=== PATIENT | female | born 1950 | race Caucasian/White ===

== ENCOUNTER → 2017-03-17 | Outpatient (CLI) | payer OTHER, MEDICAID | LOC: SBRMNEURO 20:00 | PROVIDERS: ATTEND Psychiatry & Neurology Sleep Medicine | DX: G47.33 Obstructive sleep apnea (adult) (pediatric) (principal); G47.34 Idiopathic sleep related nonobstructive alveolar hypoventilation ==

== ENCOUNTER 2017-07-15 15:00 | Emergency (ER) | payer OTHER, MEDICAID ==
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
[2017-07-15 15:13] VITALS: BP 165/86; PULSE 66; RESP 16; TEMP 98.1; O2SAT 95
== END 2017-07-15 15:32 | disposition home or self-care (01) ==
LOC: EDUNIT#
DX: Z04.71 Encounter for examination and observation following alleged adult physical abuse (principal); J44.9 Chronic obstructive pulmonary disease, unspecified; Z87.891 Personal history of nicotine dependence

== ENCOUNTER 2017-07-17 09:13 | Emergency (ER) | payer OTHER, MEDICAID ==
[2017-07-17 09:30] VITALS: BP 131/80; PULSE 69; RESP 16; TEMP 97.5; O2SAT 93
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
[2017-07-17 10:02] LABS: % IMMATURE GRANULYOCYTES 0.5 % (0.0-1.1); ABSOLUTE IMMATURE GRANULOCYTES 0.04 10^3/uL (0.00-0.10); ADD DIFF? NO; ADD MORPH? NO; ADD SCAN? NO; ATYPICAL LYMPHOCYTE FLAG 0 (0-99); FRAGMENT RBC FLAG 0 (0-99); HEMATOCRIT 38.7 % (38.0-47.0); HEMOGLOBIN 12.8 g/dL (12.6-16.3); LEFT SHIFT FLG 0 (0-99); LIPEMIA HEMOLYSIS FLAG 80 (0-99); MEAN CELL HEMOGLOBIN 30.1 pg (27.9-34.1); MEAN CELL HEMOGLOBIN CONCENTR. 33.1 g/dL (32.4-36.7); MEAN CELL VOLUME 91.1 fL (81.5-99.8); MEAN PLATELET VOLUME 9.5 fL (8.7-11.7); PLATELET CLUMPS FLAG 0 (0-99); PLATELET COUNT 213 10^3/uL (150-400); RED BLOOD CELL COUNT 4.25 10^6/uL (4.18-5.33); RED CELL DISTRIBUTION WIDTH 14.3 % (11.5-15.2)
[2017-07-17 10:19] LABS: ANION GAP 10 mEq/L (8-16); CARBON DIOXIDE 22 mEq/l (22-31); CHLORIDE 105 mEq/L (97-110); CREATININE 0.8 mg/dL (0.6-1.0); ETHANOL SERUM < 10 mg/dL (0-10); GLOMERULAR FILTRATION RATE > 60; GLUCOSE 101 mg/dL (70-100); POTASSIUM 4.6 mEq/L (3.5-5.2); SALICYLATE < 1.0 mg/dL (2.0-20.0); SODIUM 137 mEq/L (134-144)
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
== END 2017-07-17 12:05 | disposition home or self-care (01) ==
LOC: EDUNIT#
DX: F31.9 Bipolar disorder, unspecified (principal); F19.10 Other psychoactive substance abuse, uncomplicated; J44.9 Chronic obstructive pulmonary disease, unspecified; Z87.891 Personal history of nicotine dependence; Z91.14 Patient's other noncompliance with medication regimen
CPT/HCPCS: 80305; G0480

== ENCOUNTER 2017-07-18 01:58 | Emergency (ER) | payer OTHER, MEDICAID ==
[2017-07-18 02:12] VITALS: BP 145/74; PULSE 66; RESP 16; TEMP 97.9; O2SAT 96
--- NOTE | 2017-07-18 02:12 | EDPHY ---
H & P HPI/ROS: HPI CHIEF COMPLAINT: M1 hold, brought in by police. HISTORY OF PRESENT ILLNESS: This patient very pleasant 67-year-old female she presents emergency room by police on M1 hold. She was trying to get to a fdc this evening. She is from [place]. She has been in [place] for 3 days staying with friends. She is trying to get to a fdc this evening but was unable to do so. Police were contacted and she had no where to go. She was unable to get back to [place]. She was unable to get to the fdc this evening so they brought her to the emergency room for fdc. She denies wanting to hurt herself or anybody else. Denies being suicidal. They placed her on M1 for being gravely disabled however she is not gravely disabled. She would like to go to a fdc tonight. She does not want to be in the emergency room. She is calm and cooperative. Given that she does not meet M1 hold criteria have lifted this. She will be discharged from the emergency room will try to get her to his fdc this evening. Past Medical History: Bipolar disorder, COPD Past Surgical History: Cervical fusion Social History: Smokes tobacco, denies illicit drugs alcohol. Family History: Noncontributory ROS REVIEW OF SYSTEMS: A comprehensive 10 point review of systems is otherwise negative aside from elements mentioned in the history of present illness. Exam Constitutional triage nursing summary reviewed, vital signs reviewed, awake/ alert. Eyes normal conjunctivae and sclera, EOMI, PERRLA. HENT normal inspection, atraumatic, moist mucus membranes, no epistaxis, neck supple/ no meningismus, no raccoon eyes. Respiratory clear to auscultation bilaterally, normal breath sounds, no respiratory distress, no wheezing. Cardiovascular rate normal, regular rhythm, no murmur, no edema, distal pulses normal. Gastrointestinal soft, non-tender, no rebound, no guarding, normal bowel sounds, no distension, no pulsatile mass. Genitourinary no CVA tenderness. Musculoskeletal no midline vertebral tenderness, full range of motion, no calf swelling, no tenderness of extremities, no meningismus, good pulses, neurovascularly intact. Skin pink, warm, & dry, no rash, skin atraumatic. Neurologic awake, alert and oriented x 3, AAOx3, moves all 4 extremities equally, motor intact, sensory intact, CN II-XII intact, normal cerebellar, normal vision, normal speech. Psychiatric normal mood/affect. Not suicidal not homicidal. Not depressed. No complaints. Heme/Lymph/Immune no lymphadenopathy. Differential Diagnosis: Includes but is not limited to in a particular order, cold exposure, by mental exposure, homelessness, poor social situation, bipolar disorder Medical Decision Making: Plan for this patient she is not suicidal or homicidal she is not gravely disabled. She is calm and cooperative. Organized thoughts. Not acutely psychotic. She will be discharged from the emergency room to fdc. Understands return emergency room she develops worsening symptoms questions or concerns. Source: Patient, Police - Medical/Surgical History Hx Asthma: No Hx Chronic Respiratory Disease: Yes Hx Diabetes: No Hx Cardiac Disease: No Hx Renal Disease: No Hx Cirrhosis: No Hx Alcoholism: No Hx HIV/AIDS: No Hx Splenectomy or Spleen Trauma: No Other PMH: THYROIDECTOMY, NECK SURGERY,Bipolar, HepC; copd, early dementia - Social History Smoking Status: Former smoker Constitutional: Initial Vital Signs Temperature (C) 36.6 C 07/18/17 02:05 Heart Rate 66 07/18/17 02:05 Respiratory Rate 16 07/18/17 02:05 Blood Pressure 145/74 H 07/18/17 02:05 O2 Sat (%) 96 07/18/17 02:05 O2 Delivery Mode Room Air Allergies/Adverse Reactions: No Known Allergies Allergy (Verified 07/18/17 02:04) Home Medications: Medication Instructions Recorded Albuterol [Proventil Inhaler HFA 2 puffs IH Q4 PRN 12/17/13 (*)] Calcium Carbonate/Vitamin D3 1 tab PO BID 12/17/13 [Calcium 500 + Vit D Caplet] Divalproex ER [Depakote ER 500 MG 2 tab PO HS 12/17/13 (*)] Multivitamins [Multivitamin (*)] 1 tab PO DAILY 12/17/13 QUEtiapine FUMARATE [Seroquel 2 tab PO HS 12/17/13 300mg (*)] Tiotropium Inhaler [Spiriva 1 inh IH DAILY 12/17/13 Inhaler (RX)] rOPINIRole HCL [Requip 5mg (*)] 1 tab PO HS 12/17/13 BUSPIRONE HCL 10 mg PO TID 10/28/15 Herbals/Supplements -Info Only 1 ea PO DAILY 10/28/15 Levothyroxine [Synthroid 200 mcg 200 mcg PO DAILY06 10/28/15 (*)] [place] Carbonate 300 mg PO DAILY 10/28/15 OXYCODONE HCL/ACETAMINOPHEN 1 tab PO Q6H PRN 10/28/15 [OXYCODONE-APAP 7.5-325 MG TAB] [place]-3 Fatty Acids/Fish Oil [Fish 3 each PO DAILY 10/28/15 Oil 1,000 mg Capsule] Quetiapine Fumarate 50 mg PO 10/28/15 Cefuroxime Axetil [Ceftin (*)] 250 mg PO BID #9 tab 10/30/15 Ibuprofen [Motrin (*)] 400 mg PO Q6 PRN #0 tab 10/30/15 Departure - Departure Disposition: Home, Routine, Self-Care Clinical Impression: Cold exposure Qualifiers: Encounter type: initial encounter Qualified Code(s): T69.9XXA - Effect of reduced temperature, unspecified, initial encounter Bipolar disorder Qualifiers: Active/Remission status: in remission of unspecified degree Qualified Code(s): F31.70 - Bipolar disorder, currently in remission, most recent episode unspecified Condition: Good Instructions: Bipolar Disorder (ED) Referrals: NONE *PRIMARY CARE P,. [Primary Care Provider] - As per Instructions
== END 2017-07-18 02:32 | disposition home or self-care (01) ==
DX: F31.70 Bipolar disorder, currently in remission, most recent episode unspecified (principal); T69.9XXA Effect of reduced temperature, unspecified, initial encounter; J44.9 Chronic obstructive pulmonary disease, unspecified; Z87.891 Personal history of nicotine dependence; X31.XXXA Exposure to excessive natural cold, initial encounter

== ENCOUNTER 2017-07-28 08:50 | Inpatient (IN) | payer OTHER, MEDICAID ==
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
[2017-07-28 09:55] LABS: ADD DIFF? YES; ADD MORPH? NO; ADD SCAN? NO; ATYPICAL LYMPHOCYTE FLAG 0 (0-99); FRAGMENT RBC FLAG 0 (0-99); HEMATOCRIT 38.9 % (38.0-47.0); HEMOGLOBIN 12.9 g/dL (12.6-16.3); LEFT SHIFT FLG 20 (0-99); LIPEMIA HEMOLYSIS FLAG 80 (0-99); MEAN CELL HEMOGLOBIN 30.4 pg (27.9-34.1); MEAN CELL HEMOGLOBIN CONCENTR. 33.2 g/dL (32.4-36.7); MEAN CELL VOLUME 91.5 fL (81.5-99.8); MEAN PLATELET VOLUME 8.9 fL (8.7-11.7); PLATELET CLUMPS FLAG 0 (0-99); PLATELET COUNT 298 10^3/uL (150-400); RED BLOOD CELL COUNT 4.25 10^6/uL (4.18-5.33)
[2017-07-28] MEDS ORDERED: NS 500 ML IV ONE (10:16)
[2017-07-28 10:18] LABS: ANION GAP 12 mEq/L (8-16); CALCIUM 8.7 mg/dL (8.5-10.4); CARBON DIOXIDE 23 mEq/l (22-31); CHLORIDE 107 mEq/L (97-110); CREATININE 0.6 mg/dL (0.6-1.0); GLOMERULAR FILTRATION RATE > 60; GLUCOSE 128 mg/dL (70-100); POTASSIUM 3.1 mEq/L (3.5-5.2); SODIUM 142 mEq/L (134-144)
[2017-07-28 10:33] LABS: PLATELET ESTIMATE ADEQUATE (ADEQ)
[2017-07-28 10:36] LABS: HYPOCHROMIA 1+; POLYCHROMASIA 1+
[2017-07-28] MEDS ORDERED: KETOROLAC 15 MG/1 ML SDV IVP ONE (10:50)
[2017-07-28] MEDS ORDERED: ONDANSETRON 4 MG/2 ML VIAL IVP ONE (10:50)
[2017-07-28] MEDS ORDERED: ONDANSETRON 4 MG/2 ML VIAL ONE (10:52)
[2017-07-28 11:59] LABS: COLOR YELLOW; LEUKOCYTE ESTERASE,URINE NEGATIVE (NEGATIVE); NITRITE,URINE POSITIVE (NEGATIVE)
[2017-07-28 12:04] LABS: BACTERIA TRACE /hpf (NONE SEEN); MUCUS TRACE /lpf (NONE-1+)
[2017-07-28] MEDS ORDERED: ACETAMINOPHEN 325 MG TAB PO ONE (14:03)
[2017-07-28] MEDS ORDERED: ONDANSETRON 4 MG/2 ML VIAL IVP PRN (14:28)
[2017-07-28] MEDS ORDERED: ONDANSETRON DISINTEGRATING 4 MG TAB PO PRN (14:28)
[2017-07-28] MEDS ORDERED: IBUPROFEN 200 MG TAB PO PRN (14:28)
[2017-07-28] MEDS ORDERED: PROTOCOL POTASSIUM 1 DOSE MISC PRN (14:31)
[2017-07-28] MEDS ORDERED: PROTOCOL MAGNESIUM 1 DOSE IV PRN (14:31)
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
[2017-07-28] MEDS ORDERED: CEFTRIAXONE 1 GM/DEXTROSE/50 ML BAG IV ONE (16:25)
[2017-07-28] MEDS ORDERED: OXYCODONE/APAP 5/325 TAB PO PRN (16:47)
[2017-07-28] MEDS: NS W/ 20 KCl/L 1,000 ML IV SCH (16:59)
[2017-07-28] MEDS: ACETAMINOPHEN 325 MG TAB PO PRN ×2 (17:01→21:11)
[2017-07-28] MEDS: oxyCODONE IR 5 MG TAB PO PRN ×2 (17:01→21:11)
[2017-07-28] MEDS: busPIRone 10 MG TAB PO SCH ×2 (17:02→21:06)
[2017-07-28] MEDS: IPRATROPIUM/ALBUTEROL 3 ML DEYVIAL IH SCH ×2 (17:04→21:46)
[2017-07-28] MEDS: PANTOPRAZOLE SODIUM 40 MG in NS 100 ML IV SCH ×2 (17:09→21:07)
[2017-07-28] MEDS ORDERED: POTASSIUM CL 10 MEQ TAB PO ONE (17:46)
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
[2017-07-28 20:42] LABS: POTASSIUM 4.2 mEq/L (3.5-5.2)
[2017-07-28] MEDS ORDERED: LITHIUM CARBONATE ER 300 MG TAB PO SCH (21:00)
[2017-07-28] MEDS: DIVALPROEX ER 500 MG TAB PO SCH (21:06)
[2017-07-29] MEDS: ACETAMINOPHEN 325 MG TAB PO PRN (02:15)
[2017-07-29] MEDS: oxyCODONE IR 5 MG TAB PO PRN ×4 (02:16→18:34)
[2017-07-29] MEDS: DIAZEPAM 5 MG TAB PO PRN ×3 (02:16→15:33)
[2017-07-29 05:51] LABS: ADD DIFF? YES; ADD MORPH? NO; ADD SCAN? NO; ATYPICAL LYMPHOCYTE FLAG 0 (0-99); FRAGMENT RBC FLAG 20 (0-99); HEMATOCRIT 33.1 % (38.0-47.0); HEMOGLOBIN 10.9 g/dL (12.6-16.3); LEFT SHIFT FLG 10 (0-99); LIPEMIA HEMOLYSIS FLAG 80 (0-99); MEAN CELL HEMOGLOBIN 30.7 pg (27.9-34.1); MEAN CELL HEMOGLOBIN CONCENTR. 32.9 g/dL (32.4-36.7); MEAN CELL VOLUME 93.2 fL (81.5-99.8); MEAN PLATELET VOLUME 9.3 fL (8.7-11.7); PLATELET CLUMPS FLAG 10 (0-99); PLATELET COUNT 320 10^3/uL (150-400); RED BLOOD CELL COUNT 3.55 10^6/uL (4.18-5.33)
[2017-07-29] MEDS: IPRATROPIUM/ALBUTEROL 3 ML DEYVIAL IH SCH ×4 (05:52→21:43)
[2017-07-29 06:05] LABS: ANION GAP 5 mEq/L (8-16); CALCIUM 7.8 mg/dL (8.5-10.4); CARBON DIOXIDE 22 mEq/l (22-31); CHLORIDE 110 mEq/L (97-110); CREATININE 0.5 mg/dL (0.6-1.0); GLOMERULAR FILTRATION RATE > 60; GLUCOSE 92 mg/dL (70-100); MAGNESIUM 1.8 mg/dL (1.6-2.3); POTASSIUM 4.3 mEq/L (3.5-5.2); SODIUM 137 mEq/L (134-144)
[2017-07-29 06:23] LABS: HYPERSEGMENTED NEUTROPHILS 1+
[2017-07-29 06:30] LABS: PLATELET ESTIMATE ADEQUATE (ADEQ); POLYCHROMASIA 1+
[2017-07-29] MEDS: LEVOTHYROXINE 200 MCG TAB PO SCH (07:55)
[2017-07-29] MEDS: NS W/ 20 KCl/L 1,000 ML IV SCH (07:57)
[2017-07-29] MEDS: busPIRone 10 MG TAB PO SCH ×3 (07:58→21:37)
[2017-07-29] MEDS: OMEGA-3 FATTY ACIDS 1,000 MG CAP PO SCH (07:58)
[2017-07-29] MEDS: MULTIVITAMINS 1 EACH TAB PO SCH (07:58)
[2017-07-29] MEDS: PANTOPRAZOLE SODIUM 40 MG in NS 100 ML IV SCH (08:00)
[2017-07-29] MEDS ORDERED: Herbals/Supplements -Info Only PO SCH (09:00)
[2017-07-29] MEDS ORDERED: POLYETHYLENE GLYCOL 3350 17 GM PKT PO PRN (09:31)
[2017-07-29] MEDS ORDERED: MAGNESIUM HYDROXIDE 30 ML UDCUP PO PRN (09:31)
[2017-07-29] MEDS ORDERED: LACTULOSE 20 GM/30 ML UDCUP PO PRN (09:31)
[2017-07-29] MEDS ORDERED: BISACODYL 10 MG SUPP PR PRN (09:31)
--- NOTE | 2017-07-29 09:42 | HOSPPROG ---
Hospitalist Progress Note Assessment/Plan: # acute viral respiratory infection - mucinex, nebs, IS, flutter valve # COPD - on RA; no steroids given hx bipolar # leukocytosis - marked; suspect stress reaction - recheck tomorrow # possible UTI - no UCX sent - empiric rocephin, will plan short course # bipolar - not manic - cont lithium and depakote # N/V - resolved; change PPI to PO # HCV - treatment status unknown # hypothyroid - synthroid Subjective: feels stronger today, not back to normal Objective: Vital Signs Temp Pulse Resp BP Pulse Ox 36.6 C 52 L 20 122/56 H 94 07/29/17 08:00 07/29/17 08:00 07/29/17 08:00 07/29/17 08:00 07/29/17 08:00 Laboratory Results 07/29/17 05:18 07/29/17 05:18 07/28/17 07/29/17 07/30/17 05:59 05:59 05:59 Intake Total 1774 Balance 1774 chart reviewed CXR personally reviewed - Physical Exam Constitutional: no apparent distress, appears nourished Cardiovascular: regular rate and rhythym, no murmur, rub, or gallop Respiratory: no respiratory distress, expiratory wheeze, rhonchi, No reduced air movement, No dullness to percussion Gastrointestinal: normoactive bowel sounds, soft, non-tender abdomen, no palpable masses ICD10 Worksheet Patient Problems: Problems Problem Status Onset Pneumonia Acute Arthrodesis status Acute Fracture of pubic ramus Acute Fall from slipping on ice Acute Leukocytosis Acute Rhinovirus Acute
--- NOTE | 2017-07-29 11:04 | PDMN ---
Medical Necessity Medical necessity: change to IP; los >2 mn for acute viral URI, possible UTI, & marked leukocytosis; requires nebs, IV abx, trial oral PPI; comorbid COPD, bipolar & homelessness; per progress note & order 07/29/17
[2017-07-29] MEDS ORDERED: MAGNESIUM SULF 1 GM/DEXTROSE 100 ML IV ONE (11:47)
[2017-07-29] MEDS: TIOTROPIUM INHALER 18 MCG/DOSE 5 DOSE/MDI IH SCH (11:54)
[2017-07-29] MEDS: guaiFENesin 600 MG TAB.ER PO SCH ×2 (12:06→21:36)
[2017-07-29] MEDS: VANCOMYCIN HCL/NORMAL SALINE 250 ML IV SCH (15:25)
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
[2017-07-29 18:23] LABS: POTASSIUM 4.6 mEq/L (3.5-5.2)
[2017-07-29] MEDS: DIVALPROEX ER 500 MG TAB PO SCH (21:36)
[2017-07-29] MEDS: SENNOSIDES/DOCUSATE SODIUM TAB PO SCH (21:37)
[2017-07-29] MEDS: LITHIUM CARBONATE ER 300 MG TAB PO SCH (21:37)
[2017-07-30] MEDS: DIAZEPAM 5 MG TAB PO PRN ×2 (02:41→09:51)
[2017-07-30] MEDS: VANCOMYCIN HCL/NORMAL SALINE 250 ML IV SCH (04:03)
[2017-07-30] MEDS: LEVOTHYROXINE 200 MCG TAB PO SCH (04:53)
[2017-07-30] MEDS: oxyCODONE IR 5 MG TAB PO PRN ×3 (04:53→21:23)
[2017-07-30] MEDS: IPRATROPIUM/ALBUTEROL 3 ML DEYVIAL IH SCH ×4 (05:37→21:58)
[2017-07-30 05:41] LABS: % IMMATURE GRANULYOCYTES 1.1 % (0.0-1.1); ABSOLUTE IMMATURE GRANULOCYTES 0.14 10^3/uL (0.00-0.10); ADD DIFF? NO; ADD MORPH? NO; ADD SCAN? NO; ATYPICAL LYMPHOCYTE FLAG 0 (0-99); FRAGMENT RBC FLAG 0 (0-99); HEMATOCRIT 32.8 % (38.0-47.0); HEMOGLOBIN 10.7 g/dL (12.6-16.3); LEFT SHIFT FLG 0 (0-99); LIPEMIA HEMOLYSIS FLAG 80 (0-99); MEAN CELL HEMOGLOBIN 30.1 pg (27.9-34.1); MEAN CELL HEMOGLOBIN CONCENTR. 32.6 g/dL (32.4-36.7); MEAN CELL VOLUME 92.4 fL (81.5-99.8); MEAN PLATELET VOLUME 9.1 fL (8.7-11.7); PLATELET CLUMPS FLAG 10 (0-99); PLATELET COUNT 261 10^3/uL (150-400); RED BLOOD CELL COUNT 3.55 10^6/uL (4.18-5.33); RED CELL DISTRIBUTION WIDTH 15.1 % (11.5-15.2)
[2017-07-30 05:50] LABS: CALCIUM 7.9 mg/dL (8.5-10.4); CARBON DIOXIDE 23 mEq/l (22-31); CHLORIDE 107 mEq/L (97-110); CREATININE 0.5 mg/dL (0.6-1.0); GLOMERULAR FILTRATION RATE > 60; GLUCOSE 88 mg/dL (70-100); POTASSIUM 4.3 mEq/L (3.5-5.2)
[2017-07-30] MEDS: SENNOSIDES/DOCUSATE SODIUM TAB PO SCH ×2 (09:33→21:21)
[2017-07-30] MEDS: guaiFENesin 600 MG TAB.ER PO SCH ×2 (09:33→21:20)
[2017-07-30] MEDS: PANTOPRAZOLE SODIUM 40 MG TAB PO SCH (09:33)
[2017-07-30] MEDS: busPIRone 10 MG TAB PO SCH ×3 (09:33→21:19)
[2017-07-30] MEDS: OMEGA-3 FATTY ACIDS 1,000 MG CAP PO SCH (09:33)
[2017-07-30] MEDS: MULTIVITAMINS 1 EACH TAB PO SCH (09:34)
[2017-07-30] MEDS: TIOTROPIUM INHALER 18 MCG/DOSE 5 DOSE/MDI IH SCH (12:55)
--- NOTE | 2017-07-30 13:34 | HOSPPROG ---
Hospitalist Progress Note Assessment/Plan: # acute rhinovirus/enterovirus respiratory infection - mucinex, nebs, IS, flutter valve # COPD - on RA; no steroids given hx bipolar # +BCx, CLAIM REPRESENTATIVE - suspect contaminant; received a few doses of vanc - monitor overnight, will not target directly now unless repeat cultures positive # leukocytosis - marked; suspect stress reaction - recheck tomorrow # possible UTI - no UCX sent - empiric rocephin, plan short course # bipolar - not manic - cont lithium and depakote # N/V - resolved; change PPI to PO # HCV - treatment status unknown # hypothyroid - synthroid # dispo - tomorrow if no additional BCx positive Subjective: feels weak, but overall doing well; still coughing Objective: Vital Signs Temp Pulse Resp BP Pulse Ox 36.7 C 73 18 166/70 H 93 07/30/17 12:00 07/30/17 12:55 07/30/17 12:55 07/30/17 12:00 07/30/17 12:55 Laboratory Results 07/30/17 05:27 07/30/17 05:27 07/29/17 07/30/17 07/31/17 05:59 05:59 05:59 Intake Total 1600 Balance 1600 - Physical Exam Constitutional: chronically ill appearing Cardiovascular: regular rate and rhythym, no murmur, rub, or gallop Respiratory: no respiratory distress, expiratory wheeze (mild), rhonchi (mild), No reduced air movement Gastrointestinal: normoactive bowel sounds, soft, non-tender abdomen, no palpable masses ICD10 Worksheet Patient Problems: Problems Problem Status Onset Pneumonia Acute Arthrodesis status Acute Fracture of pubic ramus Acute Fall from slipping on ice Acute Leukocytosis Acute Rhinovirus Acute
--- NOTE | 2017-07-30 15:27 | ASMTCMCOM ---
CM Note CM Note Notes: Today Massimor asked CM assistant shift supervisor to collect clothing for Pt. She did so and SWer gave Pt. clothing, shoes, and a winter coat. Will try on clothes w/ help of visiting friend. Pt. states she has been keeping in touch with the [facility] to keep her already reserved bed. MD wants to keep Pt. at least one more night. Likely d/c tomorrow. Pt. to d/c in a cab to the [facility] to her already reserved bed. If [facility] cannot keep Pt. in her room until 16:30, Pt. states she is OK waiting in the [facility] lobby until 16:30 so that she does not have to wait outside at the [facility]. SWer did not hear back from [facility]PS nor did [facility] call back with any respite bed options. CM to follow for d/c. Date Signed: 07/30/2017 03:26 PM Electronically Signed By:Marjorie Davison LCSW
[2017-07-30 19:11] LABS: ANION GAP 12 mEq/L (8-16); SODIUM 142 mEq/L (134-144)
[2017-07-30] MEDS: DIVALPROEX ER 500 MG TAB PO SCH (21:19)
[2017-07-30] MEDS: LITHIUM CARBONATE ER 300 MG TAB PO SCH (21:20)
[2017-07-31] MEDS: oxyCODONE IR 5 MG TAB PO PRN ×3 (02:17→15:39)
[2017-07-31] MEDS: DIAZEPAM 5 MG TAB PO PRN ×3 (03:15→15:39)
[2017-07-31 06:02] LABS: % IMMATURE GRANULYOCYTES 1.8 % (0.0-1.1); ABSOLUTE IMMATURE GRANULOCYTES 0.16 10^3/uL (0.00-0.10); ADD DIFF? NO; ADD MORPH? NO; ADD SCAN? NO; ATYPICAL LYMPHOCYTE FLAG 50 (0-99); FRAGMENT RBC FLAG 0 (0-99); HEMATOCRIT 38.1 % (38.0-47.0); HEMOGLOBIN 12.3 g/dL (12.6-16.3); LEFT SHIFT FLG 10 (0-99); LIPEMIA HEMOLYSIS FLAG 80 (0-99); MEAN CELL HEMOGLOBIN 29.4 pg (27.9-34.1); MEAN CELL HEMOGLOBIN CONCENTR. 32.3 g/dL (32.4-36.7); MEAN CELL VOLUME 90.9 fL (81.5-99.8); MEAN PLATELET VOLUME 9.3 fL (8.7-11.7); PLATELET CLUMPS FLAG 0 (0-99); PLATELET COUNT 347 10^3/uL (150-400); RED BLOOD CELL COUNT 4.19 10^6/uL (4.18-5.33); RED CELL DISTRIBUTION WIDTH 14.8 % (11.5-15.2)
[2017-07-31] MEDS: IPRATROPIUM/ALBUTEROL 3 ML DEYVIAL IH SCH ×2 (06:07→11:08)
[2017-07-31 06:14] LABS: ANION GAP 12 mEq/L (8-16); CALCIUM 9.2 mg/dL (8.5-10.4); CARBON DIOXIDE 28 mEq/l (22-31); CHLORIDE 102 mEq/L (97-110); CREATININE 0.6 mg/dL (0.6-1.0); GLOMERULAR FILTRATION RATE > 60; GLUCOSE 92 mg/dL (70-100); MAGNESIUM 1.9 mg/dL (1.6-2.3); POTASSIUM 4.5 mEq/L (3.5-5.2); SODIUM 142 mEq/L (134-144)
[2017-07-31] MEDS: LEVOTHYROXINE 200 MCG TAB PO SCH (06:35)
[2017-07-31] MEDS: PANTOPRAZOLE SODIUM 40 MG TAB PO SCH (08:16)
[2017-07-31] MEDS: busPIRone 10 MG TAB PO SCH ×2 (08:16→15:39)
[2017-07-31] MEDS: guaiFENesin 600 MG TAB.ER PO SCH (08:16)
[2017-07-31] MEDS: OMEGA-3 FATTY ACIDS 1,000 MG CAP PO SCH (08:16)
[2017-07-31] MEDS: MULTIVITAMINS 1 EACH TAB PO SCH (08:16)
[2017-07-31] MEDS: SENNOSIDES/DOCUSATE SODIUM TAB PO SCH (08:16)
[2017-07-31 08:54] VITALS: BP 110/91; PULSE 88; TEMP 98.8
[2017-07-31] MEDS: TIOTROPIUM INHALER 18 MCG/DOSE 5 DOSE/MDI IH SCH (11:08)
[2017-07-31 11:16] VITALS: RESP 18; O2SAT 90
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
--- NOTE | 2017-07-31 15:54 | ASMTCMCOM ---
CM Note CM Note Notes: Reviewed chart; spoke w/ CHANA Michaud re: d/c poc, pt's progress. Per MD notes, pt to discharge to [facility]. Met w/ pt to discuss plan. Pt called [facility] to reserve a bed for tonight. Cab voucher provided per prior CM notes; [facility] voucher number [phone]. Assisted pt to call to reserve cab for 1630. IM signed. Spent 30+ min w/ pt calling cab, explaining IM and discussing homelessness. CM business card provided at pt request. Pt to f/u as directed. CM avail for any further issues or concerns. Date Signed: 07/31/2017 03:53 PM Electronically Signed By:Laila Kelsey RN
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
== END 2017-07-31 16:34 | disposition home or self-care (01) | DRG 690 ==
LOC: EDUNIT# → EEVIPCON 14:24 → INTOOBSV 14:24 → F3E 16:42 → OBSVTOIN 07-29 09:42
PROVIDERS: ADMIT Family Medicine; ATTEND Family Medicine
DX: N39.0 Urinary tract infection, site not specified (principal); J00 Acute nasopharyngitis [common cold]; K52.9 Noninfective gastroenteritis and colitis, unspecified; B97.89 Other viral agents as the cause of diseases classified elsewhere; J44.9 Chronic obstructive pulmonary disease, unspecified; F31.9 Bipolar disorder, unspecified; E03.9 Hypothyroidism, unspecified; B19.20 Unspecified viral hepatitis C without hepatic coma; Z87.891 Personal history of nicotine dependence; Z59.0 Homelessness
CPT/HCPCS: 92523-GN; 92526-GN; 92610-GN; 96374; 97116-GP; 97162-GP; G0378; G8978-GP-CK; G8979-GP-CI; G8996-GN-CI; G8997-GN-CI; G8998-GN-CI; J0696; J1885; J2405; J3370; J3475

== ENCOUNTER 2017-08-21 08:33 | Emergency (ER) | payer OTHER, MEDICAID ==
[~2017-08-21 08:33] MED LIST: CEPHALEXIN 500 MG CAP PO SCH; SULFAMETHOX/TMP 800/160 MG 1 TAB PO SCH
[2017-08-21 08:41] VITALS: BP 137/63; PULSE 78; RESP 16; TEMP 98.6; O2SAT 94
--- NOTE | 2017-08-21 08:55 | EDPHY ---
H & P Stated Complaint: L ARM SWELLING Time Seen by Provider: 08/21/17 08:47 HPI/ROS: CHIEF COMPLAINT: Left arm erythema HISTORY OF PRESENT ILLNESS: Patient is a 67-year-old homeless female who comes to the emergency department complaining of swelling pain and erythema to her left arm just distal to the elbow. It is tender to palpation. She has not had a fever. She does have mild body aches. She states that this is similar to previous episodes of cellulitis. No trauma. No joint swelling or pain with flexion or rotation of her elbow. REVIEW OF SYSTEMS: Constitutional: denies: chills, fever, recent illness, recent injury EENTM: denies: blurred vision, double vision, nose congestion Respiratory: denies: cough, shortness of breath Cardiac: denies: chest pain, irregular heart rate, lightheadedness, palpitations Gastrointestinal/Abdominal: denies: abdominal pain, diarrhea, nausea, vomiting, blood streaked stools Genitourinary: denies: dysuria, frequency, hematuria, pain Musculoskeletal: denies: joint pain, muscle pain Skin: See HPI Neurological: denies: headache, numbness, paresthesia, tingling, dizziness, weakness Hematologic/Lymphatic: denies: blood clots, easy bleeding, easy bruising Immunologic/allergic: denies: HIV/AIDS, transplant EXAM: GENERAL: Well-appearing, well-nourished and in no acute distress. HEAD: Atraumatic, normocephalic. EYES: Pupils equal round and reactive to light, extraocular movements intact, sclera anicteric, conjunctiva are normal. ENT: TMs normal, nares patent, oropharynx clear without exudates. Moist mucous membranes. NECK: Normal range of motion, supple without lymphadenopathy or JVD. LUNGS: Breath sounds clear to auscultation bilaterally and equal. No wheezes rales or rhonchi. HEART: Regular rate and rhythm without murmurs, rubs or gallops. ABDOMEN: Soft, nontender, normoactive bowel sounds. No guarding, no rebound. No masses appreciated. BACK: No CVA tenderness, no spinal tenderness, step-offs or deformities EXTREMITIES: Normal range of motion, no pitting or edema. No clubbing or cyanosis. NEUROLOGICAL: Cranial nerves II through XII grossly intact. Normal speech, normal gait. 5/5 strength, normal movement in all extremities, normal sensation PSYCH: Normal mood, normal affect. SKIN: Cellulitis to left forearm. Does not appear to involve the elbow. No pain with range of motion. Positive pain with palpation. No palpable abscess. No drainage. Slightly warm to touch. Source: Patient Exam Limitations: No limitations - Personal History Current Tetanus/Diphtheria Vaccine: Yes - Medical/Surgical History Hx Asthma: No Hx Chronic Respiratory Disease: Yes Hx Diabetes: No Hx Cardiac Disease: No Hx Renal Disease: No Hx Cirrhosis: No Hx Alcoholism: No Hx HIV/AIDS: No Hx Splenectomy or Spleen Trauma: No Other PMH: THYROIDECTOMY, NECK SURGERY,Bipolar, HepC; copd, early dementia - Family History Significant Family History: No pertinent family hx - Social History Smoking Status: Former smoker Alcohol Use: Sober Drug Use: None Constitutional: Initial Vital Signs Temperature (C) 37.0 C 08/21/17 08:40 Heart Rate 78 08/21/17 08:40 Respiratory Rate 16 08/21/17 08:40 Blood Pressure 137/63 H 08/21/17 08:40 O2 Sat (%) 94 08/21/17 08:40 O2 Delivery Mode Room Air Allergies/Adverse Reactions: No Known Allergies Allergy (Verified 07/18/17 02:04) Home Medications: Medication Instructions Recorded Albuterol [Proventil Inhaler HFA 2 puffs IH Q4 PRN 12/17/13 (*)] Multivitamins [Multivitamin (*)] 1 tab PO DAILY 12/17/13 Tiotropium Inhaler [Spiriva 1 inh IH DAILY 12/17/13 Inhaler (RX)] Herbals/Supplements -Info Only 1 ea PO DAILY 10/28/15 OXYCODONE HCL/ACETAMINOPHEN 1 tab PO Q6H PRN 10/28/15 [OXYCODONE-APAP 7.5-325 MG TAB] [place]-3 Fatty Acids/Fish Oil [Fish 1 each PO DAILY 10/28/15 Oil 1,000 mg Capsule] Ibuprofen [Motrin (*)] 400 mg PO Q6 PRN #0 tab 10/30/15 Divalproex ER [Depakote ER 500 MG 1 tab PO HS #3 tab 07/31/17 (*)] Levothyroxine [Synthroid 200 mcg 200 mcg PO DAILY06 #3 tab 07/31/17 (*)] [place] Carbonate ER [Lithobid 300 600 mg PO HS #3 tab 07/31/17 mg (*)] busPIRone [Buspar (*)] 10 mg PO TID #10 tab 07/31/17 guaiFENesin [Mucinex 600 MG (*)] 1,200 mg PO BID #15 tab.er 07/31/17 rOPINIRole HCL [Requip 5mg (*)] 1 tab PO HS #3 tab 07/31/17 Cephalexin [Keflex] 500 mg PO TID #21 cap 08/21/17 Sulfamethox/Tmp 800/160 mg 1 tab PO BID #14 tab 08/21/17 [Bactrim Ds] Medical Decision Making ED Course/Re-evaluation: Patient states that she has done well on oral antibiotics. I will start her on Keflex and Bactrim. We discussed indications for returning to the emergency department. She is happy with this plan and declines further workup or testing at this time. Differential Diagnosis: Partial list of the Differential diagnosis considered include but were not limited to; cellulitis, bursitis, septic joint and although unlikely based on the history and physical exam, I also considered gout, arthritis, trauma. I discussed these differential diagnoses and the plan with the patient as well as the usual and expected course. The patient understands that the diagnosis is provisional and that in medicine we are not always correct and that further workup is often warranted. Usual and customary warnings were given. All of the patient's questions were answered. The patient was instructed to return to the emergency department should the symptoms at all worsen or return, otherwise to followup with the physician as we discussed. - Data Points Medications Given: Discontinued Medications Cephalexin HCl (Keflex) 500 mg PO EDNOW ONE PRN Reason: Protocol Stop: 08/21/17 08:53 Last Admin: 08/21/17 08:59 Dose: 500 mg Ibuprofen (Motrin) 600 mg PO EDNOW ONE Stop: 08/21/17 10:15 Last Admin: 08/21/17 10:18 Dose: 600 mg Trimethoprim/Sulfamethoxazole (Bactrim Ds) 1 ea PO EDNOW ONE PRN Reason: Protocol Stop: 08/21/17 08:53 Last Admin: 08/21/17 08:59 Dose: 1 ea Departure - Departure Disposition: Home, Routine, Self-Care Clinical Impression: Cellulitis of left arm Condition: Fair Instructions: Cephalexin (By mouth), Sulfamethoxazole/Trimethoprim (By mouth), Cellulitis (ED) Referrals: Patient,NotPresent [Unknown] - As per Instructions [facility],. [Clinic] - As per Instructions Prescriptions: Cephalexin [Keflex] 500 mg PO TID #21 cap Sulfamethox/Tmp 800/160 mg [Bactrim Ds] 1 tab PO BID #14 tab
[2017-08-21] MEDS: CEPHALEXIN 500 MG CAP PO ONE (08:59)
[2017-08-21] MEDS: SULFAMETHOX/TMP 800/160 MG 1 TAB PO ONE (08:59)
[2017-08-21] MEDS: IBUPROFEN 600 MG TAB PO ONE (10:18)
--- NOTE | 2017-08-21 14:34 | ASMTCMCOM ---
CM Note CM Note Notes: Patient requesting transportation assistance to [facility] in [place]. I reminded patient that it is Wednesday and that the center is closed. Patient explains that she needs to return to the homeless detention in [facility] this evening and chooses the location of the [facility]; [address] to be dropped off so she will be closer to the detention and paige line. patient is not feeling well and is also receiving Mapped medications; Bactrim and Keflex I have provided patient with a taxi ride to her requested destination. Not having taxi vouchers at the time, I have called [employer] and arranged transport for her with CM and "voucher" number [phone] Date Signed: 08/21/2017 02:34 PM Electronically Signed By:Saray Castillo RN
--- NOTE | 2017-08-21 15:19 | ASMTCMCOM ---
CM Note CM Note Notes: CM (continued) note from ER visit 08/21/17: Attempted to LM with patient's career discovery teacher at [facility], Dinora Akers to inform of patient's ER visit. Office closed and unable to LM. I have LM with [facility] re patient's ER visit today. Patient was discharged earlier and took taxi to [facility] with plans to return to the homeless jail this evening. CM will continue to follow and attempt to coordinate care with community providers Date Signed: 08/21/2017 03:18 PM Electronically Signed By:Saray Castillo RN
== END 2017-08-21 10:50 | disposition home or self-care (01) ==
LOC: EDUNIT#
DX: L03.114 Cellulitis of left upper limb (principal); J44.9 Chronic obstructive pulmonary disease, unspecified; Z87.891 Personal history of nicotine dependence

== ENCOUNTER 2017-08-26 03:51 | Emergency (ER) | payer OTHER, MEDICAID ==
[2017-08-26 03:59] VITALS: RESP 16; TEMP 97.5; O2SAT 95
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
[2017-08-26 05:23] VITALS: BP 149/53; PULSE 74
== END 2017-08-26 05:23 | disposition home or self-care (01) ==
LOC: EDUNIT#
DX: R07.89 Other chest pain (principal); J44.9 Chronic obstructive pulmonary disease, unspecified; Z87.891 Personal history of nicotine dependence

== ENCOUNTER 2017-10-28 03:10 | Emergency (ER) | payer OTHER, MEDICAID ==
[2017-10-28] MEDS ORDERED: IBUPROFEN 800 MG TAB PO ONE (03:17)
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
[2017-10-28 06:08] VITALS: RESP 20; O2SAT 93
[2017-10-28 06:45] VITALS: BP 150/87; PULSE 59; TEMP 97.5
== END 2017-10-28 07:08 | disposition home or self-care (01) ==
LOC: EDUNIT#
DX: S20.229A Contusion of unspecified back wall of thorax, initial encounter (principal); J44.9 Chronic obstructive pulmonary disease, unspecified; Z87.891 Personal history of nicotine dependence; W01.0XXA Fall on same level from slipping, tripping and stumbling without subsequent striking against object, initial encounter

== ENCOUNTER 2019-03-30 23:45 | Emergency (ER) | payer OTHER, MEDICAID | END 2019-03-31 05:06 | disposition home or self-care (01) ==

== ENCOUNTER 2019-04-01 13:30 | Emergency (ER) | payer OTHER, MEDICAID | END 2019-04-01 22:44 | disposition home or self-care (01) ==